=== PATIENT | male | born 1990 | race African-American/Black ===

== ENCOUNTER 2021-06-25 09:43 | Outpatient (CLI) | payer OTHER ==
--- NOTE | 2021-06-25 13:03 | MRI Report ---
PROCEDURE: MRI of the brain with and without contrast INDICATIONS: TRIGEMINAL NEURALGIA CONTRAST: IV CONTRAST: Gadavist ml: 8.3 TECHNIQUE: Noncontrast axial T1 spin echo, axial T2 fast spin echo, sagittal and axial FLAIR, slaughter l T2 fast spin echo, axial gradient echo, axial diffusion and ADC through the brain. After the admin istration of contrast, axial and coronal T1 spin echo with fat saturation through the brain. Thin se ction T2 weighted sequences through the skull base was obtained as well. COMPARISON: None. FINDINGS: Image quality: Excellent. CSF spaces: Basal cisterns are patent. No extra-axial fluid collections. Ventricles are normal in size and shape. Brain: No midline shift. No intracranial bleeds or masses. No abnormal intracranial enhancement. There is normal cerebral volume loss. White matter signal unremarkable. The brainstem appears normal . Diffusion-weighted images demonstrate no acute ischemic insults. Normal intravascular flow voids are present. Trigeminal nerves show normal volume and signal. No evidence of adjacent suspicious vessel or neurova scular compression. Root entry zones unremarkable. There is a small 2 mm nodule associated with the right intracanicular cochlear nerve with mild enhanc ement. Skull and face: Calvarial marrow is normal in signal. Orbits appear normal. Sinuses: Sinuses and mastoids appear clear. IMPRESSION: 1. Unremarkable bilateral trigeminal nerves without evidence of neurovascular compression. 2. Small 2 mm incidental right IAC cochlear nerve enhancing nodule. This could reflect a small schwan noma versus crossing vessel. Consider correlation with right-sided sensorineural hearing loss, and 1 year follow-up dedicated IAC study. Reviewed by: Anand Arias MD on 06/25/2021 12:02 PM [facility] Approved by: Anand Arias MD on 06/25/2021 12:02 PM [facility] Station ID: [id number]
== END 2021-06-25 09:44 | disposition home or self-care (01) ==
LOC: DI 09:43
DX: G50.0 Trigeminal neuralgia (principal)
CPT/HCPCS: 70553; A9585